=== PATIENT | male | born 1990 | race Caucasian/White ===

== ENCOUNTER 2020-07-29 19:39 | Emergency (ER) | payer MEDICAID ==
[~2020-07-29] VITALS: Ht 182.9 cm; Wt 101.6 kg
[2020-07-29 19:54] VITALS: BP 157/97
--- NOTE | 2020-07-29 20:05 | NUR ---
PT AMBULATED TO RESTROOM TO PROVIDE UA.
--- NOTE | 2020-07-29 20:14 | NUR ---
PA AT BEDSIDE
--- NOTE | 2020-07-29 20:22 | NUR ---
PT STATES SHE HE STARTED HAVING PAINFUL URINATION AND FREQUENCY X 1 DAY NOW. DENIES ANY BLOOD IN HIS URINE, NO PENILE DISCHARGE. DENIES ANY ABD PAIN, NO N/V/D. PT AFEBRILE. PT GIVEN TWO CUPS OF WATER IN ATTEMPT TO COLLECT A URINE SAMPLE. NKA NO HX
--- NOTE | 2020-07-29 20:27 | NUR ---
PT NOW TELLS ME HE HAS URINARY INCONTINENCE, THE URINE IS CONSTANTLY DRIBBLING AND WHEN HE IS ABLE TO ACTUALLY GO TO THE RESTROOM IS WHEN HE HAS PAIN.
[2020-07-29 21:05] LABS: BASOPHILS # (AUTO) 0.1 K/uL (0.00-0.22); BASOPHILS % (AUTO) 1.1 % (0.0-2.0); EOSINOPHILS # (AUTO) 0.2 K/uL (0-0.4); EOSINOPHILS % (AUTO) 2.9 % (0.0-4.0); HEMATOCRIT 45.9 % (36-52); HEMOGLOBIN 15.5 g/dL (12.0-18.0); LYMPHOCYTES # (AUTO) 1.2 K/uL (2.0-11.5); LYMPHOCYTES % (AUTO) 16.2 % (20.5-51.1); MEAN CORPUSCULAR HEMOGLOBIN 32 pg (27-31); MEAN CORPUSCULAR HGB CONC 34 g/dL (33-37); MEAN CORPUSCULAR VOLUME 93.5 fL (80-94); MONOCYTES # (AUTO) 0.8 K/uL (0.8-1.0); NEUTROPHILS # (AUTO) 5.2 K/uL (1.8-7.7); NEUTROPHILS % (AUTO) 68.8 % (42.2-75.2); PLATELET COUNT (AUTO) 201 K/uL (140-450); RED BLOOD CELL COUNT(AUTO) 4.91 MIL/uL (4.20-6.10); RED CELL DISTRIBUTION WIDTH 14.4 % (11.6-13.7); WHITE BLOOD COUNT (AUTO) 7.6 K/uL (4.8-10.8)
[2020-07-29 21:15] LABS: ANION GAP 14.6 (8-16); CARBON DIOXIDE 27.8 mmol/L (21-32); CREATININE 1.1 mg/dL (0.6-1.3); POTASSIUM 4.4 mmol/L (3.5-5.1)
[2020-07-29 21:21] LABS: TOTAL BILIRUBIN 0.9 mg/dL (0.0-1.0)
--- NOTE | 2020-07-29 21:33 | NUR ---
PT WAS ABLE TO PROVIDE US WITH UA, URINE DIP DONE AND SHOWN TO .
[2020-07-29 21:54] LABS: APPEARANCE,URINE CLEAR (CLEAR); BILIRUBIN,URINE NEGATIVE (NEGATIVE); BLOOD, URINE NEGATIVE (NEGATIVE); COLOR,URINE DARK YELLOW (YELLOW); LEUKOCYTE ESTERASE ,URINE NEGATIVE (NEGATIVE); NITRITE, URINE NEGATIVE (NEGATIVE); UGLUCOSE NEGATIVE (NEGATIVE)
[2020-07-29 22:10] VITALS: BP 138/88
--- NOTE | 2020-07-29 22:10 | NUR ---
Patient discharged with v/s stable. Written and verbal after care instructions given and explained. Patient alert, oriented and verbalized understanding of instructions. Ambulatory with steady gait. All questions addressed prior to discharge. ID band removed. Patient advised to follow up with PMD. Rx of OXYBUTYNIN given. Patient educated on indication of medication including possible reaction and side effects. Opportunity to ask questions provided and answered.
[2020-08-01 06:08] LABS: CHLAMYDIA TRACHOMATIS AMP DNA Negative (Negative)
== END 2020-07-29 22:10 | disposition home or self-care (01) ==
LOC: MED 19:39
DX: R32 Unspecified urinary incontinence (principal)
CPT/HCPCS: 36415; 80053; 81003; 85025; 99284